=== PATIENT | male | born 2000 | race Two or more races ===

== ENCOUNTER 2022-02-17 16:50 | Emergency (ER) | payer MEDICAID ==
[~2022-02-17] VITALS: Ht 188 cm; Wt 57.3 kg
[2022-02-17 17:36] VITALS: BP 125/70
== END 2022-02-17 19:28 | disposition home or self-care (01) ==
LOC: EMS 16:54
DX: S63.502A Unspecified sprain of left wrist, initial encounter (principal); X50.0XXA Overexertion from strenuous movement or load, initial encounter; Y93.89 Activity, other specified; Y92.89 Other specified places as the place of occurrence of the external cause; Y99.0 Civilian activity done for income or pay
CPT/HCPCS: 99283